=== PATIENT | male | born 1950 | race Caucasian/White ===

== ENCOUNTER 2018-06-19 06:37 | Inpatient (IN) | payer OTHER ==
--- NOTE | 2018-06-06 15:08 | HP ---
HISTORY AND PHYSICAL: DATE OF ADMISSION/SURGERY: 06/19/18 DATE OF OFFICE VISIT: 06/06/18 SURGEON: Mirna Duggan MD.* (DICTATED BY LAKISHA ESTRADA) PROCEDURE: Right total hip arthroplasty. CHIEF COMPLAINT: Right hip pain. HISTORY OF PRESENT ILLNESS: Mr. Rhodes is a 67-year-old gentleman with continued complaints of right hip pain. He has failed conservative treatment and elected to proceed with a right total hip arthroplasty. PAST MEDICAL HISTORY: Hypertension, asthma, hypothyroidism, and melanoma. PAST SURGICAL HISTORY: Melanoma excision. CURRENT MEDICATIONS: 1. Omeprazole 20 mg a day. 2. Hydrochlorothiazide 50 mg a day. 3. Lisinopril 40 mg a day. 4. Naproxen 500 mg twice a day. 5. Symbicort 2 puffs daily. 6. Tramadol as needed. 7. Fluticasone nasal spray as needed. 8. Levothyroxine 137 mcg daily. 9. Colace as needed. 10. Dry eyes. 11. Vitamin D. 12. Multivitamin. ALLERGIES: SULFA, AVELOX, ENTEX SUSPENSION, BIAXIN, LIPITOR, and MACROBID. FAMILY HISTORY: COPD. SOCIAL HISTORY: He is a 67-year-old gentleman, lives alone. He does not smoke or use drugs or alcohol. REVIEW OF SYSTEMS: A complete 14-point review of systems was reviewed with the patient, is positive for hypothyroidism, asthma, and occasional vertigo. He denies history of DVT, PE, hepatitis, HIV, or anesthesia problems. PHYSICAL EXAMINATION GENERAL: He is well developed, well nourished, in no acute distress. VITAL SIGNS: He stands 68 inches tall, weighs 260 pounds. His blood pressure is 156/94 and his heart rate is 97. HEENT: Normocephalic, atraumatic. NECK: Supple. No palpable lymph nodes. PULMONARY: The lungs are clear to auscultation bilaterally. CARDIO: Regular rate and rhythm. Strong S1, S2. ABDOMEN: Soft, nontender, nondistended. NEUROLOGICAL: He is alert and oriented x3. MUSCULOSKELETAL: Right lower extremity: The skin is intact. There are no open wounds or abrasions. He walks with an antalgic type gait, favoring his right hip. He has decreased internal and external rotation of the right hip. He has 2+ dorsalis pedis pulse, intact sensation. His lower extremity muscle group strengths are intact at 5/5. ASSESSMENT AND PLAN: Mr. Rhodes is a 67-year-old gentleman with endstage osteoarthritis of the right hip. He has failed conservative treatments and elected to proceed with a right total hip arthroplasty. The surgery is scheduled for 06/19/[address] Duggan discussed the risks and benefits of the surgery at today's visit and all of his questions were answered. He will follow up with Dr. Duggan 2 weeks after the surgery. LAKISHA ESTRADA [id number]/[facility] #: [id number] TAMI
[~2018-06-19 06:37] MED LIST: Acetaminophen TAB* 325 MG PO ONE; Buffered Lidocaine 1% SYRIN* 1 ML/SYRINGE INTRADERM ONE; Famotidine IV* 10 MG/ML 2 ML (20 mg) IV ONE; Gabapentin CAP(*) 300 MG PO ONE; Lactated Ringers 1000 ML Bag* 1,000 ML IV SCH
--- OUTSIDE RECORDS SUMMARY | 2018-06-19 06:43 | XMS REPORT | Continuity of Care Document ---
:1950 External Reference #:[id number] Author Name Nadira Knott Care Team Providers Name Role Phone Rosa Elena Carrillo FNP Primary Care Physician Unavailable Payers Date Identification Numbers Payment Provider Subscriber Policy Number: [id number] [employer] Insurance Tye Rhodes PayID: [id number] [address] [place] [address] Advance Directives Description No Information Available Problems Date Description Provider Status Onset: 05/07/2018 Morbid obesity Mirna Duggan M.D. Active Onset: 05/07/2018 Localized, primary osteoarthritis of the Mirna Duggan M.D. 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 ETOH Use Denies alcohol use Tobacco Use Start: Unknown End: Patient is a former smoker Unknown Recreational Drug Use Denies Drug Use Smoking Status Reviewed: 06/06/18 Patient is a former smoker Exercise Type/Frequency Exercises sporadically Allergies, Adverse Reactions, Alerts Date Description Reaction Status Severity Comments 04/26/2018 Sulfa Antibiotics Active rash 04/26/2018 Avelox Active rash 04/26/2018 Entex S Active 04/26/2018 Lipitor Active 04/26/2018 Macrobid Active 06/06/2018 Biaxin rash Active Medications Medication Date Status Form Strength Qnty SIG Indications Ordering Provider Omeprazole Active Capsules DR 20mg 1 capsule / by mouth , Rosa Elena, daily F.N.P. Hydrochlorothiazi Active Tablets 50mg 1 tab by Birkmey /0000 mouth , Rosa Elena, daily F.N.P. Lisinopril Active Tablets 40mg 1 tab by Birkmey /0000 mouth , Rosa Elena, daily F.N.P. Naproxen Active Tablets 500mg 1 tab by Birkmeyer mouth , Rosa Elena, twice F.N.P. daily Symbicort Active Aerosol 160-4.5mc 2 puffs Birey g/Act twice , Rosa Elena, daily F.N.P. Tramadol HCL Active Tablets 50mg take 1 to Unknown 2 tablets by mouth every 4 to 6 hours if needed for cayla... (Refer To Prescripti on Notes). Fluticasone Active Suspension 50mcg/[facility] , Rosa Elena, nostril F.N.P. daily as needed Levothyroxine Active Tablets 137mcg 90tab 1 by mouth [facility] Sodium s every day , Rosa Elena, F.N.P. Colace Active Capsules 100mg 1 tab every 12 hours daily Dry Eyes Active 1 drop to both eyes as needed Vitamin D Active 5000 Iu By Unknown / Mouth daily Multi Vitamin Active Tablets 1 by mouth Unknown Daily / every other day Synthroid Hx Tablets 137mcg [facility] , Rosa Elena, - F.N.P. 04/25 Immunizations Description No Information Available Vital Signs Date Vital Result Comment 06/06/2018 8:26am Height 68 inches 5'8" Weight 260.00 lb Heart Rate 97 /min BP Systolic Sitting 156 mmHg BP Diastolic Sitting 94 mmHg Pain Level 8 O2 % BldC Oximetry 96 % BMI (Body Mass Index) 39.5 kg/m2 05/07/2018 10:03am Height 68 inches 5'8" Weight 266.00 lb Heart Rate 88 /min BP Systolic 174 mmHg BP Diastolic 84 mmHg BMI (Body Mass Index) 40.4 kg/m2 04/26/2018 2:42pm Height 67.25 inches 5'7.25" Weight 269.00 lb Heart Rate 67 /min BP Systolic Sitting 150 mmHg BP Diastolic Sitting 92 mmHg Respiratory Rate 16 /min Pain Level 8 when standing O2 % BldC Oximetry 96 % BMI (Body Mass Index) 41.8 kg/m2 Results Test Date Facility Test Result H/L Range Note CBC Auto Diff 06/06/2018 [facility] White Blood 7.9 10^3/uL N 3.5-10.[address] [place] [address] [phone] Red Blood Count 4.86 10^6/uL N 4.18-5.48 Hemoglobin 15.4 g/dL N 14.0-18.0 Hematocrit 43 % N 36-46 Mean Corpuscular Volume 89 fL N 80-94 Mean Corpuscular Hemoglobin 32 pg High 27-31 Mean Corpuscular HGB Conc 36 g/dL N 31-36 Red Cell Distribution Width 13 % N 10.5-15 Platelet Count 338 10^3/uL N 150-450 Mean Platelet Volume 9.5 fL N 7.4-10.4 Abs Neutrophils 4.4 10^3/uL N 1.5-7.7 Abs Lymphocytes 2.4 10^3/uL N 1.0-4.8 Abs Monocytes 0.7 10^3/uL N 0-0.8 Abs Eosinophils 0.2 10^3/uL N 0-0.6 Abs Basophils 0.1 10^3/uL N 0-0.2 Abs Nucleated RBC 0 10^3/uL Granulocyte % 56.1 % Lymphocyte % 30.9 % Monocyte % 9.4 % Eosinophil % 2.7 % Basophil % 0.9 % Nucleated Red Blood Cells % 0 Comp Metabolic Panel 06/06/2018 [facility] Sodium 140 mmol/L N 135-[address] [place] [address] [phone] Potassium 3.9 mmol/L N 3.5-5.0 Chloride 102 mmol/L N 101-111 Co2 Carbon Dioxide 26 mmol/L N 22-32 Anion Gap 12 mmol/L High 2-11 Glucose 89 mg/dL N 70-100 Blood Urea Nitrogen 18 mg/dL N 6-24 Creatinine 0.95 mg/dL N 0.67-1.17 BUN/Creatinine Ratio 18.9 N 8-20 Calcium 10.3 mg/dL N 8.6-10.3 Total Protein 8.0 g/dL N 6.4-8.9 Albumin 4.8 g/dL N 3.2-5.2 Globulin 3.2 g/dL N 2-4 Albumin/Globulin Ratio 1.5 N 1-3 Total Bilirubin 0.50 mg/dL N 0.2-1.0 Alkaline Phosphatase 69 U/L N 34-104 Alt 40 U/L N 7-52 Ast 34 U/L N 13-39 Egfr Non- 79.1 >60 Egfr 95.7 >60 2 Inr/Protime 06/06/2018 [facility] Inr 1.03 High 0.77-1.[address] [place], [place] [id number] [phone] Laboratory test 06/06/2018 [facility] Partial 34.3 seconds N 26.0-36.[address] [place] [address] Time PTT [phone] Type & Screen 06/06/2018 [facility] Patient O Positive [address] [place] [address] [phone] Antibody Screen NEGATIVE 1 AA 06/19 2 Because ethnic data is not always readily available, this report includes an eGFR for both -Americans and non- Americans. The National Kidney Disease Education Program (NKDEP) does not endorse the use of the MDRD equation for patients that are not between the ages of 18 and 70, are , have extremes of body size, muscle mass, or nutritional status, or are non- or non-. According to the National Kidney Foundation, irrespective of diagnosis, the stage of the disease is based on the level of kidney function: Stage Description GFR(mL/min/1.73 m(2)) 1 Kidney damage with normal or decreased GFR 90 2 Kidney damage with mild decrease in GFR 60-89 3 Moderate decrease in GFR 30-59 4 Severe decrease in GFR 15-29 5 Kidney failure <15 (or dialysis) 3 06/19 Procedures Date Code Description Status 04/26/2018 06141 Xray Knee 3 Views Completed 04/26/2018 85101 Radiologic Exam Hip Unilateral With Pelvis 2-3 Views Completed Encounters Type Date Location Provider Dx Diagnosis Office Visit 05/07/2018 Orthopedic Mirna Dugagn, M16.11 Unilateral primary 9:30a [facility] osteoarthritis, right hip M25.561 Pain in right knee E66.01 Morbid (severe) obesity due to excess calories Z68.41 Body mass index (BMI) 40.0-44.9, adult Office Visit 04/26/2018 Orthopedic Urban Maldonado M16.11 Unilateral primary 3:00p [facility] Yung MD osteoarthritis, right AT [place] hip M25.561 Pain in right knee M25.551 Pain in right hip Plan of Treatment Future Appointment(s):06/29/2018 9:45 am - Mirna Duggan M.D. at [facility]..06/19/2018 11:30 am - Kimani Dyer PA-C at [facility]..06/19/2018 11:30 am - LAKISHA Gongora at [facility]..06/19/2018 11:30 am - Mirna Duggan M.D. at [facility]..06/06/2018 - Mirna Duggan M.D.M16.11 Unilateral primary osteoarthritis, right hipFollow up:Follow up: 2 weeks after kcqmetaP69.551 Pain in right hip
[2018-06-19] MEDS ORDERED: ceFAZolin 2 GM in NS PREMIX(*) 2 GM/100 ML BAG IVPB ONE (07:31)
[2018-06-19] MEDS ORDERED: Famotidine IV* 10 MG/ML 2 ML (20 mg) ONE (07:31)
[2018-06-19] MEDS ORDERED: Acetaminophen TAB* 325 MG ONE (07:31)
[2018-06-19] MEDS ORDERED: Gabapentin CAP(*) 300 MG ONE (07:31)
[2018-06-19] MEDS ORDERED: Buffered Lidocaine 1% SYRIN* 1 ML/SYRINGE INTRADERM ONE (07:31)
[2018-06-19] MEDS ORDERED: Ondansetron INJ* 2 MG/ML VIAL ONE (08:01)
[2018-06-19] MEDS ORDERED: Dexamethasone IV* 4 MG/ML 1 ML (4 MG) ONE (08:01)
[2018-06-19] MEDS ORDERED: Lidocaine 2% MPF* 2 ML VIAL ONE (08:01)
[2018-06-19] MEDS ORDERED: Propofol* 10 MG/ML 20 ML BTL ONE ×3 (08:01→10:23)
[2018-06-19] MEDS ORDERED: Ropivacaine (OR use only) 2 MG/ML 10 ML ONE (08:01)
[2018-06-19] MEDS ORDERED: ROPIVACAINE 5 MG/ML 30 ML BTL (0.5%) ONE (08:01)
[2018-06-19] MEDS ORDERED: fentaNYL* 50 MCG/ML 2 ML VIAL (100 MCG VIAL) ONE ×2 (08:02→12:54)
[2018-06-19] MEDS ORDERED: Midazolam* 1 MG/ML 10 ML VIAL (10 MG) ONE (08:02)
[2018-06-19] MEDS ORDERED: KETAMINE HCL* 50 MG/ML 10 ML VIAL ONE (08:02)
[2018-06-19] MEDS ORDERED: Sodium Chloride 0.9%* 10 ML ONE ×2 (08:03)
[2018-06-19] MEDS ORDERED: ceFAZolin 1 GM in Dextrose (*) 1 GM/50 ML BAG IVPB ONE (08:24)
[2018-06-19] MEDS ORDERED: Cisatracurium* 2 MG/ML MDV 5 ML ONE (09:49)
[2018-06-19] MEDS ORDERED: fentaNYL* 50 MCG/ML 5 ML VIAL (250 MCG VIAL) ONE (09:52)
[2018-06-19] MEDS ORDERED: EPHEDrine (Pressors)* 50 MG/ML VIAL ONE (10:18)
[2018-06-19] MEDS ORDERED: Phenylephrine 10 MG/ML VIAL* 1 ML VIAL ONE (10:19)
[2018-06-19] MEDS ORDERED: Glycopyrrolate IV* 0.2 MG/ML 1 ML VIAL ONE (10:31)
[2018-06-19] MEDS ORDERED: Ketorolac INJ* 30 MG/ML 1 ML VIAL ONE (10:32)
[2018-06-19] MEDS ORDERED: HYDROmorphone INJ1* 1 MG/ML SYRINGE ONE (10:59)
[2018-06-19] MEDS ORDERED: Levalbuterol 0.63MG/3ML NEB* UNIT OF USE INH PRN (11:01)
[2018-06-19] MEDS ORDERED: HYDROmorphone INJ1* 1 MG/ML SYRINGE IV PRN (11:01)
[2018-06-19] MEDS ORDERED: Naloxone* 0.4 MG/ML 1 ML VIAL IV PRN (11:01)
[2018-06-19] MEDS ORDERED: Ondansetron INJ* 2 MG/ML VIAL IV PRN ×2 (11:01→12:36)
[2018-06-19] MEDS ORDERED: Bupivacaine 0.5%* 50 ML VIAL ONE (12:07)
[2018-06-19] MEDS ORDERED: Magnesium Hydroxide LIQ* 30 ML UDC PO PRN (12:36)
[2018-06-19] MEDS ORDERED: oxyCODONE/Acetamin 5/325 MG* TAB PO PRN (12:36)
[2018-06-19] MEDS ORDERED: Bisacodyl SUPP* 10 MG SUPP PR PRN (12:36)
[2018-06-19] MEDS ORDERED: Morphine 4 MG/ML VIAL (1 ml) 4 MG/ML VIAL IV PRN (12:36)
[2018-06-19] MEDS ORDERED: Cyclobenzaprine TAB* 10 MG PO PRN (12:36)
[2018-06-19] MEDS ORDERED: Acetaminophen TAB* 325 MG PO PRN (12:36)
[2018-06-19] MEDS ORDERED: diPHENhydraMINE IV* 50 MG/ML 1 ml VIAL (BENADRYL) IV PRN (12:36)
[2018-06-19] MEDS ORDERED: Albuterol HFA INHALER* 8 gm MDI INH PRN (12:39)
[2018-06-19] MEDS ORDERED: [UNRECOGNIZED DRUG - OTHER] BOTH EYES PRN (12:39)
[2018-06-19] MEDS ORDERED: Albuterol 2.5 MG/3 ML NEB.SOL* (0.083%) INH PRN (12:39)
[2018-06-19] MEDS ORDERED: Fluticasone Propionate 1 PUFF/50 MCG DISKUS INH PRN (12:39)
[2018-06-19] MEDS: fentaNYL* 50 MCG/ML 2 ML VIAL (100 MCG VIAL) IV PRN ×2 (12:54→13:16)
--- NOTE | 2018-06-19 13:38 | PN ---
Progress Note - Progress Note Date of Service: 06/19/18 Note: Pt seen in PACU POD0 sp RTH. His pain is well controlled. Denies CP, SOB, dizziness or nausea. Dressing CDI, DF/PF intact, DP2+, sensation intact to light touch distally. Eliquis for DVT prophylaxis
[2018-06-19] MEDS: Lactated Ringers 1000 ML Bag* 1,000 ML IV SCH (14:43)
[2018-06-19] MEDS ORDERED: oxyCODONE/Acetamin 5/325 MG* TAB ONE (14:45)
[2018-06-19] MEDS: oxyCODONE/Acetamin 5/325 MG* TAB PO PRN ×2 (14:47→21:02)
--- NOTE | 2018-06-19 15:45 | OP ---
Operative Report - Blank - Operative Report Date of Operation: 06/19/18 Note: YOANDY SPRAGUE 1950 Date Of Surgery: 06/19/18 Mirna Duggan MD Half Section Ironer: Kimani BANUELOS did help throughout the procedure with preparation of the hip, wound retraction, manipulation of the hip, and wound closure. Anesthesiologist: Dr. Brian Anesthesia Type: General Preoperative Diagnosis: Right severe degenerative osteoarthritis of the hip Postoperative Diagnosis: As above Procedure Performed: Right Total Hip Arthroplasty Complications: None Specimen: Femoral head and acetabular reamings sent to pathology. Hardware used: This is uncemented [place] total hip arthroplasty hardware for the femur a size 3 accolade II with 127 degree neck femoral component, for the acetabulum a size 54E trident II tritanium cluster hole shell, for the insert a size 36E trident x 3 polyethylene insert, and for the femoral head a size 36 + 5 ceramic V40 femoral head. Brief history/Indication: YOANDY SPRAGUE was known in clinic and had a history of severe right hip pain. He failed conservative treatment with anti- inflammatories, pain pills, intra-articular injections and physical therapy. He elected to undergo right total hip arthroplasty due to continued pain and decreased quality of life. Radiographs showed severe end stage osteoarthritis of the hip with bone on bone contact. Informed consent was obtained from the patient. He understood the risks of surgery included but were not limited to: bleeding, infection, damage to nearby structures, intraoperative fracture, nerve palsy, failure of the hardware, early loosening, stiffness or loss of motion, dislocation, leg length discrepancy, anesthesia complications, stroke, heart attack, blood clot and . He wished to proceed. Intra-Operative findings: Intraoperatively the patient was noted to have severe loss of cartilage of the acetabulum and femoral head. Description of the Procedure: YOANDY SPRAGUE was identified in the preanesthesia unit. His right hip was marked as the correct operative side. Informed consent was signed and placed in the chart. The patient was taken to the operating room and placed under anesthesia without complication. A ruiz catheter was placed. The patient was placed on the peg board with all bony prominences well padded. The right lower extremity was prepped and draped in the usual sterile fashion. Preoperative time -out was made to correctly identify the patient, side and site. Appropriate intraoperative antibiotics were given within one hour of incision. A standard posterior incision was made and carried sharply down to the lateral fascia. A new 10 blade was used to make an incision in the fascia in line with the skin incision. A charnley retractor was placed. The piriformis and conjoined tendons were identified and elevated off the posterolateral femur using electrocautery. These were tagged with number 5 Ethibond. Next electrocautery was used to make a posterolateral capsular flap and this was tagged with number 5 Ethibonds. The hip was carefully dislocated. Lesser trochanter to the center of the femoral head was measured at 55 mm. The oscillating saw was used to make the femoral neck cut. The femoral head was carefully removed. The femur was retracted anteriorly and the acetabular retractors were placed. Long-handled knife was used to sharply remove any remaining labrum from the acetabular rim. The acetabulum was sequentially reamed up to a size 53. A bleeding subchondral bone bed was obtained. A trial liner was placed and had excellent fit and stability. A 54 E trident II tritanium cluster hole shell was placed and had excellent stability with appropriate anteversion and abduction angle. A size 36 E trident x3 polyethylene liner was impacted into the acetabular shell. The liner was checked for stability and was stable. Next attention was turned to preparation of the femoral canal. A canal finder was used to enter the proximal femur. The femoral canal was sequentially broached up to a size 3 femoral broach trial. A trial neck and 36 + 5 trial femoral head was chosen. Lesser trochanter to center of the femoral head measurement was satisfactory. The hip was reduced and taken through a range of motion. The hip was stable in all positions with good soft tissue tension and appropriate leg lengths. The hip was dislocated and all trials were removed. The final implant chosen was an accolade II size 3 with a 127 degree neck. This stem was impacted into the femoral canal without difficulty. The stem was stable with appropriate anteversion. The femoral head chosen was a 36 + 5 ceramic biolox. The head was impacted onto the femoral neck without difficulty. The final lesser trochanter to center of the femoral head measurement was satisfactory. The hip was reduced and taken through a range of motion. The hip was stable in all positions with good soft tissue tension and appropriate leg lengths. The hip was copiously irrigated with sterile saline. The previously tagged capsule and tendons were repaired to the posterolateral femur through two trochanteric drill holes. The lateral fascia layer was closed using number 1 vicryls. The rest of the incision was closed in a layered fashion using 0 and 2-0 vicryls. The skin was closed using 3-0 monocryl suture and Dermabond. Sterile adaptic, 4x4s and paper tape was used to cover the incision. The patients anesthesia was reversed without difficulty. He was taken to the PACU in stable condition. Intended weight-bearing will be as tolerated with posterior hip precautions.
[2018-06-19] MEDS: ceFAZolin 1 GM ADVAN(*) 1 GM in NS 0.9% 50 ML* 50 ML IVPB SCH (17:54)
[2018-06-19] MEDS: Docusate CAP* 100 MG PO SCH (21:01)
[2018-06-19] MEDS: Mometasone/Formoter 200/5 MDI INH SCH (21:05)
[2018-06-19] MEDS: Magnesium Hydroxide LIQ* 30 ML UDC PO SCH (21:05)
--- NOTE | 2018-06-19 23:10 | CONS ---
CC: RICHA Awad * CONSULTATION REPORT: DATE OF CONSULT: 06/19/18 PRIMARY CARE PROVIDER: RICHA Awad. REQUESTING PHYSICIAN: Dr. Duggan. ATTENDING PHYSICIAN: Dr. Esthela Rodriguez (dictated by Darin Chino NP). REASON FOR CONSULT: Medical management of hypertension. HISTORY OF PRESENT ILLNESS/HOSPITAL COURSE: I will refer you to LAKISHA Navarrete's history and physical dictated on 06/06/18 for a complete summary of events, but in short, Mr. Rhodes is a 67-year-old male with a past medical history significant for borderline diabetes, hyperlipidemia, hypertension, hypothyroidism, obesity, osteoarthritis; who presented to [facility] today on 06/19/18 for an elective right total hip replacement after failing conservative treatment. PAST MEDICAL HISTORY: 1. Borderline diabetes. 2. Allergic rhinitis. 3. Asthma. 4. Constipation. 5. GERD. 6. Hyperlipidemia. 7. Hypertension. 8. Hypothyroidism. 9. History of melanoma in situ. 10. Obesity. 11. Osteoarthritis. 13. Benign thyroid nodule. 14. Vitamin D deficiency. PAST SURGICAL HISTORY: 1. Nodule removed from right salivary gland. 2. Skin biopsies. HOME MEDICATIONS: 1. Omeprazole 20 mg p.o. daily. 2. Hydrochlorothiazide 50 mg p.o. daily. 3. Lisinopril 40 mg p.o. daily. 4. Naproxen 500 mg twice a day. 5. Symbicort 2 puffs daily. 6. Tramadol as needed. 7. Fluticasone nasal spray as needed. 8. Levothyroxine 137 mcg daily. 9. Colace as needed. 10. Dry eyes. 11. Vitamin D. 12. Multivitamins. ALLERGIES: SULFA, AVELOX, ENTEX SUSPENSION, BIAXIN, LIPITOR, MACROBID. FAMILY HISTORY: Mother at age 86 due to COPD. Father in his 90s due to old age. SOCIAL HISTORY: The patient is . The patient lives alone. The patient uses a cane for ambulation. The patient is a former smoker. The patient denies alcohol use. The patient denies drug use. The patient's surrogate decision maker will be Ciro Rhodes, his son, in the case he cannot make his own decisions. REVIEW OF SYSTEMS: Constitutional: No fevers, no anorexia. Cardiac: No chest funk, no edema, no palpitations. Respiratory: No cough, no hemoptysis, no shortness of breath. GI: No nausea or vomiting, no diarrhea, no abdominal pain. : No gross hematuria, no dysuria. The patient has a Ariza in place. Neuro: No focal weakness or sensory loss. Eyes: No visual complaints. ENT: The patient reports occasional postnasal drip. The patient denies sore throat. The patient denies difficulty swallowing. Musculoskeletal: The patient reports mild pain to right hip. He reports it 0 at rest. He reports it with movement. The patient denies other joint or muscle pain. Skin: No rashes or lesions. Psych: No psychosis or anxiety. PHYSICAL EXAM: General: Mr. Rhodes is a 67-year-old well-developed man, sitting in a recliner on [facility]. He appears in no acute distress, appears stated age. Vital Signs: Temp 98.2, HR 89, RR 18, O2 saturation 98% on room air, BP 153/82. ENT: PERRLA. EOMs intact. Oral mucosa is moist without lesion. Posterior pharynx is clear. Neck: Supple. No lymphadenopathy. Full range of motion. Respiratory: Symmetrical chest expansion. No accessory muscle use. Lungs are clear to auscultation. No rhonchi, wheezes, or rubs. CV: Regular rate and rhythm. S1, S2 present. No murmurs, rubs, or gallops. Extremities: Skin is warm and smooth bilaterally. No edema. No clubbing or cyanosis. Pedal pulses 2+ bilaterally. Musculoskeletal: The patient reports right hip pain as mentioned in ROS. No other pain or deformities. Abdomen: Soft, nontender. Bowel sounds x4. Neuro: Awake, alert, oriented. Motor strength is 5/5 in upper and lower extremities. No focal deficits or weakness. Skin: Grossly intact without lesions. Dressing to right hip is clean, dry, and intact. DIAGNOSTIC STUDIES/LAB DATA: CBC obtained 06/06/18: WBC 7.9, hemoglobin 14.4, hematocrit 43, platelet 338. CMP obtained 06/06/18: sodium 140, potassium 3.9, chloride 102, carbon dioxide 26, BUN 18, creatinine 0.95, glucose 89. ASSESSMENT AND PLAN: Mr. Rhodes is a 67-year-old male with a past medical history significant for borderline diabetes, constipation, gastroesophageal reflux disease, hyperlipidemia, hypertension, hypothyroidism, osteoarthritis; who presented to [facility] today for an elective right total hip replacement. The patient will be on Short-Stay [facility] for it. 1. Status post right total hip replacement: The patient is postop day 0. The patient reports pain is well controlled with current pain medication regimen. Ortho team has ordered pain management, antibiotics, IV fluids, and bowel regimen. Plan will be deferred to ortho team. 2. Borderline diabetes: The patient reports he has borderline diabetes and has been diagnosed with diabetes. The patient is not on medication for diabetes. We will defer this to his primary care. 3. Allergic rhinitis: We will continue the patient's Flonase. 4. Asthma: We will continue the patient's albuterol as needed. 5. Constipation: Bowel regimen has been ordered by the ortho team. 6. Gastroesophageal reflux disease: Continue the patient's PPI. 7. Hyperlipidemia: The patient does not appear to be on a lipid lowering agent ; therefore, I will defer this to his primary care for repeat lipids and further treatment if needed. 8. Hypertension: The ortho team has held the patient's lisinopril and continued the patient's hydrochlorothiazide. I agree with this plan. I would restart the patient's lisinopril as he tolerates. 9. Hypothyroid: Continue the patient's levothyroxine. 10. FEN: Diet has been ordered by the ortho team. 11. Code status: The patient is full code. 12. DVT prophylaxis: DVT prophylaxis has been ordered by the ortho team in the form of Eliquis 2.5 mg p.o. b.i.d., starting tomorrow. TIME SPENT: Approximately 45 minutes were spent on this consult, greater than half the time was spent with the patient obtaining my history, performing physical exam, and reviewing my plan of care. The case has been reviewed with my attending Dr. Rodriguez who agrees with my plan. Thank you very much for allowing us to participate in the care of this patient. We will follow along with you. DARIN CHINO, MINOO [id number]/[facility] #: [id number] TAMI
[2018-06-20] MEDS: Lactated Ringers 1000 ML Bag* 1,000 ML IV SCH (00:10)
[2018-06-20] MEDS: ceFAZolin 1 GM ADVAN(*) 1 GM in NS 0.9% 50 ML* 50 ML IVPB SCH ×2 (01:45→10:21)
[2018-06-20] MEDS: oxyCODONE/Acetamin 5/325 MG* TAB PO PRN ×4 (03:38→17:34)
[2018-06-20] MEDS: Levothyroxine TAB* 137 MCG TAB PO SCH (05:37)
[2018-06-20] MEDS: oxyCODONE TAB* 5 MG TAB PO PRN ×2 (05:37→20:59)
[2018-06-20 06:02] LABS: Hematocrit 31 % (36-46); Mean Platelet Volume 8.6 fL (7.4-10.4); Platelet Count 234 10^3/uL (150-450)
[2018-06-20 06:20] LABS: BUN/Creatinine Ratio 14.3 (8-20); Calcium 8.7 mg/dL (8.6-10.3); EGFR African American 110.3 (>60); EGFR Non-African American 91.1 (>60); Potassium 3.1 mmol/L (3.5-5.0)
[2018-06-20] MEDS: Potassium Chlor TAB* 20 MEQ TAB.ER PO SCH ×2 (08:30→12:30)
[2018-06-20] MEDS: Lisinopril TAB* 10 MG PO SCH (08:31)
[2018-06-20] MEDS: Docusate CAP* 100 MG PO SCH ×2 (08:31→20:59)
[2018-06-20] MEDS: Hydrochlorothiazide TAB* 50 MG PO SCH (08:31)
[2018-06-20] MEDS: Apixaban* 2.5 MG TAB PO SCH ×2 (08:31→20:59)
[2018-06-20] MEDS: Magnesium Hydroxide LIQ* 30 ML UDC PO SCH ×2 (08:32→20:59)
[2018-06-20] MEDS: Vitamin THERAPEUTIC TAB PO SCH (08:32)
[2018-06-20] MEDS: Mometasone/Formoter 200/5 MDI INH SCH ×2 (08:36→20:29)
--- NOTE | 2018-06-20 09:15 | PN ---
Progress Note - Progress Note Date of Service: 06/20/18 SOAP: Subjective: []Patient seen and examined at bedside. He is feeling well, pain is well controlled. Denies CP, SOB, dizziness, nausea. Objective: []General: Appears well, NAD LLE: Left hip dressing CDI, thigh is soft, DF/PF intact, DP2+, sensation intact to light touch distally Calves supple and nontender without erythema, edema or palpable cords Assessment: []POD [address] Duggan Plan: []WBAT PT/OT Posterior hip precautions hypokalemia: replace K+ eliquis 2.5 mg po BID x 30 days Tentative plan for DC home tomorrow Vital Signs Temp 98.9 F 06/20/18 07:26 Pulse 74 06/20/18 07:26 Resp 18 06/20/18 08:32 BP 140/67 06/20/18 07:26 Pulse Ox 92 06/20/18 07:26 Intake & Output 06/19/18 06/20/18 06/20/18 18:59 06:59 18:59 Intake Total 2900 1630 Output Total 300 2200 Balance 2600 -570 Weight 254 lb Intake: IV Fluids 2900 980 CEFAZOLIN 3 GM 100 LR 2800 980 IVPB 50 ABX - CEFAZOLIN 50 Oral 600 Output: Ariza 150 2200 Estimated Blood Loss 150 Laboratory Last Values Hgb 11.0 g/dL (14.0-18.0) L 06/20/18 05:49 Hct 31 % (36-46) L 06/20/18 05:49 Plt Count 234 10^3/uL (150-450) 06/20/18 05:49 MPV 8.6 fL (7.4-10.4) 06/20/18 05:49 Sodium 139 mmol/L (135-145) 06/20/18 05:48 Potassium 3.1 mmol/L (3.5-5.0) L 06/20/18 05:48 Chloride 105 mmol/L (101-111) 06/20/18 05:48 Carbon Dioxide 27 mmol/L (22-32) 06/20/18 05:48 Anion Gap 7 mmol/L (2-11) 06/20/18 05:48 BUN 12 mg/dL (6-24) 06/20/18 05:48 Creatinine 0.84 mg/dL (0.67-1.17) 06/20/18 05:48 Est GFR ( Amer) 110.3 (>60) 06/20/18 05:48 Est GFR (Non-Af Amer) 91.1 (>60) 06/20/18 05:48 BUN/Creatinine Ratio 14.3 (8-20) 06/20/18 05:48 Glucose 124 mg/dL (70-100) H 06/20/18 05:48 Calcium 8.7 mg/dL (8.6-10.3) 06/20/18 05:48
[2018-06-20] MEDS ORDERED: Dextrose 50% Syringe 50 ML* 25 GM/50 ML SYRINGE IV PUSH PRN (13:26)
--- NOTE | 2018-06-20 13:28 | PN ---
Hospitalist Progress Note Date of Service: 06/20/18 HOSPITALIST ADDENDUM Mr Rhodes is a 67yo M with PMH of glucose intolerance (A1c 6.1), HTN, asthma, admitted for elective right YUSEF. His BP is trending up and I'll resume his Lisnopril at a lower dose. Monitor FS and cover if >180. DVT prophylaxis with Eliquis as per Ortho.
[2018-06-20] MEDS: Insulin LISPRO* 1 UNITS UNIT SUBCUT SCH (17:36)
[2018-06-21] MEDS: Levothyroxine TAB* 137 MCG TAB PO SCH (06:10)
[2018-06-21] MEDS: oxyCODONE/Acetamin 5/325 MG* TAB PO PRN ×2 (06:13→11:39)
[2018-06-21 07:13] LABS: Hematocrit 32 % (36-46); Hemoglobin 11.1 g/dL (14.0-18.0); Mean Platelet Volume 8.9 fL (7.4-10.4); Platelet Count 233 10^3/uL (150-450)
[2018-06-21] MEDS: Insulin LISPRO* 1 UNITS UNIT SUBCUT SCH ×2 (07:26→11:42)
[2018-06-21] MEDS: Docusate CAP* 100 MG PO SCH (08:40)
[2018-06-21] MEDS: Apixaban* 2.5 MG TAB PO SCH (08:41)
[2018-06-21] MEDS: Lisinopril TAB* 10 MG PO SCH (08:41)
[2018-06-21] MEDS: Vitamin THERAPEUTIC TAB PO SCH (08:41)
[2018-06-21] MEDS: Magnesium Hydroxide LIQ* 30 ML UDC PO SCH (08:41)
[2018-06-21] MEDS: Hydrochlorothiazide TAB* 50 MG PO SCH (08:41)
[2018-06-21] MEDS: Mometasone/Formoter 200/5 MDI INH SCH (08:42)
--- NOTE | 2018-06-21 09:43 | PN ---
Progress Note - Progress Note Date of Service: 06/21/18 SOAP: Subjective: [] Patient seen at bedside. He is feeling well, pain is well controlled. Denies CP, SOB, nausea, dizziness. Desires DC home. Objective: []General: Appears well, NAD LLE: Left hip dressing CDI, thigh is soft, DF/PF intact, DP2+, sensation intact to light touch distally Calves supple and nontender without erythema, edema or palpable cords Assessment: []POD [address] Duggan Plan: []WBAT PT/OT Posterior hip precautions hypokalemia, awaiting lab result for repeat today eliquis 2.5 mg po BID x 30 days DC home Vital Signs Temp 98.4 F 06/21/18 08:05 Pulse 80 06/21/18 08:05 Resp 18 06/21/18 08:40 BP 157/59 06/21/18 08:05 Pulse Ox 94 06/21/18 08:05 Intake & Output 06/20/18 06/21/18 06/21/18 18:59 06:59 18:59 Intake Total 1653 1080 480 Output Total 1550 1700 Balance 103 -620 480 Intake: IV Fluids 973 ABX - CEFAZOLIN 107 LR 866 Oral 680 1080 480 Output: Urine 1550 1700 Other: # Bowel Movements 2 Laboratory Last Values Hgb 11.1 g/dL (14.0-18.0) L 06/21/18 07:05 Hct 32 % (36-46) L 06/21/18 07:05 Plt Count 233 10^3/uL (150-450) 06/21/18 07:05 MPV 8.9 fL (7.4-10.4) 06/21/18 07:05 Sodium 139 mmol/L (135-145) 06/20/18 05:48 Potassium 3.1 mmol/L (3.5-5.0) L 06/20/18 05:48 Chloride 105 mmol/L (101-111) 06/20/18 05:48 Carbon Dioxide 27 mmol/L (22-32) 06/20/18 05:48 Anion Gap 7 mmol/L (2-11) 06/20/18 05:48 BUN 12 mg/dL (6-24) 06/20/18 05:48 Creatinine 0.84 mg/dL (0.67-1.17) 06/20/18 05:48 Est GFR ( Amer) 110.3 (>60) 06/20/18 05:48 Est GFR (Non-Af Amer) 91.1 (>60) 06/20/18 05:48 BUN/Creatinine Ratio 14.3 (8-20) 06/20/18 05:48 Glucose 124 mg/dL (70-100) H 06/20/18 05:48 POC Glucose (mg/dL) 134 mg/dL (70-100) H 06/21/18 07:25 Calcium 8.7 mg/dL (8.6-10.3) 06/20/18 05:48
--- NOTE | 2018-06-21 10:11 | DS ---
Orthopedic Discharge Summary - Discharge Summary Date of Admission:06/19/18 Date of Discharge: 06/21/18 Date of Surgery: 06/19/18 Attending Orthopedic Provider: Dr Duggan Pre-operative Diagnosis: Left hip arthritis Operative Procedure: left total hip arthroplasty Condition of Patient: stable History: YOANDY SPRAGUE is a 67 year old M with years of increasingly severe left hip pain. Patient has failed conservative management and has elected to undergo a left total hip replacement Hospital Course: YOANDY was admitted to [facility] on 06/19/18. Patient underwent a left total hip replacement without complication followed by a brief recovery in PACU and transfer to the Short Stay Surgical Unit in stable condition. Our hospitalist service, physical therapy and occupational therapy also participated in this patients care. Post-op day 1: patient was alert and in no acute distress. Dressing was clean, dry and intact. Operative extremity dorsiflexion and plantarflexion intact, sensation intact to light touch distally , DP2+. Post-op day two: dressing was changed, incision was clean, dry and intact. Patient was deemed to be medically and orthopedically stable for discharge home. Physical therapy goals were met. Discharge Medications Medication Instructions Recorded Confirmed Type Albuterol 2.5MG/3ML (0.083%)* 1 puff INH DAILY PRN 06/06/18 06/19/18 History [Ventolin 2.5 MG/3 ML NEB.ROBERT*] Albuterol Sulfate [Ventolin Hfa] 2 puff INH DAILY PRN 06/06/18 06/19/18 History Budesonide/Formote 160/4.5(NF) 2 puff INH BID 06/06/18 06/19/18 History [Symbicort 160/4.5 (NF)] Cholecalciferol (Vitamin D3) 125 mcg PO QAM 06/06/18 06/19/18 History [Vitamin D3] Cyanocobalamin TAB* [Vitamin B12 500 mcg PO QAM 06/06/18 06/19/18 History TAB*] Cyclobenzaprine HCl 10 mg PO DAILY PRN 06/06/18 06/19/18 History Docusate Sodium [Colace] 100 mg PO BID 06/06/18 06/19/18 History Dry Eye [place] Benefits Liquid 1 drop BOTH EYES DAILY PRN 06/06/18 06/19/18 History Fluticasone Propionate Diskus 50 mcg IH DAILY PRN 06/06/18 06/19/18 History [Flovent Diskus] Hydrochlorothiazide TAB* 50 mg PO QAM 06/06/18 06/19/18 History [Hydrodiuril TAB*] Levothyroxine TAB* [Synthroid 137 137 mcg PO 0800 06/06/18 06/19/18 History MCG TAB*] Lisinopril 40 mg PO QAM 06/06/18 06/19/18 History Loratadine 10 mg PO QAM 06/06/18 06/19/18 History Multivit-Mins/Iron/Folic/Lycop 1 tab PO EVERY OTHER DAY 06/06/18 06/19/18 History [Centrum Ultra Men's Tablet] Omeprazole 20 mg PO QAM 06/06/18 06/19/18 History Acetaminophen TAB* [Tylenol TAB*] 650 mg PO Q8H PRN tab 06/21/18 Rx Apixaban* [Eliquis*] 2.5 mg PO BID #60 tab 06/21/18 Rx Docusate CAP* [Colace Cap*] 100 mg PO BID PRN #90 cap 06/21/18 Rx oxyCODONE/Acetamin 5/325 MG* 1 tab PO Q4H PRN tab 06/21/18 Rx [Percocet 5/325 TAB*] oxyCODONE/Acetamin 5/325 MG* 2 tab PO Q4H PRN #70 tab MDD 10 06/21/18 Rx [Percocet 5/325 TAB*] Discharge Instructions following Orthopedic Surgery: Activity: * Weight Bearing as tolerated * Continue physical therapy and occupational therapy exercises as shown * start outpatient physical therapy Hip replacements: Continue Hip Precautions- do not cross legs or bend greater than 90 degrees/squat Wound care: * OK to shower on post-op day 3, no bathing, swimming, or submerging wound. * Use gentle soap, pat dry. Cover with gauze, NELLY wrap or tape. Call Orthopedic office for: * Increased drainage * Redness * Increased pain * Fever Go to ER with shortness of breath or chest pain. Diet: * Regular diet * Increase fluids and fiber to prevent constipation. * Continue to use stool softeners, call office if no bowel motion within 48 hours. Medications See Home Medication List in your packet for medications that you should take after discharge. DVT Prophylaxis Eliquis Dosin.5 mg, 1 tab every 12 hours x 30 days. This medication increases bleeding tendency Pain Control: Percocet 5/325 mg 1-2 tabs by mouth every 4-6 hours as needed for pain. Maximum of 10 tabs per day. Wean off as soon as pain allows. Hold for sedation Please note that Percocet contains Tylenol (acetaminophen). Maximum daily dose of Tylenol is 4000 mg from all sources. Antibiotics are required prior to any dental work. FOLLOW UP: Follow up with [Urban ] Within 10-14 days, call for appointment Please call our office with any questions or concerns ([phone]) [facility] to [facility] [place]
[2018-06-21 11:46] VITALS: BP 133/59
== END 2018-06-21 12:30 | disposition home or self-care (01) | DRG 470 ==
LOC: AA 06:37 → SSU 12:36
PROVIDERS: ADMIT Orthopaedic Surgery Adult Reconstructive Orthopaedic Surgery; ATTEND Orthopaedic Surgery Adult Reconstructive Orthopaedic Surgery
PROC: 0SR904A Replacement of Right Hip Joint with Ceramic on Polyethylene Synthetic Substitute, Uncemented, Open Approach (ICD-10-PCS; principal; 2018-06-19 09:15)
DX: M16.11 Unilateral primary osteoarthritis, right hip (principal); I10 Essential (primary) hypertension; J45.909 Unspecified asthma, uncomplicated; E03.9 Hypothyroidism, unspecified; E66.9 Obesity, unspecified; E78.5 Hyperlipidemia, unspecified; K21.9 Gastro-esophageal reflux disease without esophagitis; F32.9 Major depressive disorder, single episode, unspecified; E04.1 Nontoxic single thyroid nodule; E87.6 Hypokalemia; Z85.820 Personal history of malignant melanoma of skin; Z82.49 Family history of ischemic heart disease and other diseases of the circulatory system; Z68.38 Body mass index [BMI] 38.0-38.9, adult; Z87.891 Personal history of nicotine dependence; Z88.1 Allergy status to other antibiotic agents; Z88.2 Allergy status to sulfonamides; Z88.8 Allergy status to other drugs, medicaments and biological substances; Z82.5 Family history of asthma and other chronic lower respiratory diseases; Z79.51 Long term (current) use of inhaled steroids
CPT/HCPCS: 36415; 72170; 80048; 84132; 85014; 85018; 85049; 94640; A9270-GY; C1776; J0690; J1100; J1170; J1885; J2250; J2405; J2704; J2795; J3010